=== PATIENT | male | born 1960 | race African-American/Black ===

== ENCOUNTER 2018-06-02 04:05 | Emergency (ER) | payer MEDICARE, MEDICAID ==
[~2018-06-02] VITALS: Ht 165.1 cm; Wt 95.5 kg
[~2018-06-02 04:05] MED LIST: FLEXERIL 1010 MG/TAB PO; NORCO 325 MG-51 TAB PO
[2018-06-02 04:30] LABS: BASO % 0.3 % (0.0-2.0); EOS # 0.1 (0.0-0.7); EOS % 1.5 % (0-4.0); GRAN # 5.7 (1.4-6.5); GRAN % 60.8 % (42.2-75.2); HEMATOCRIT 40.2 % (42.0-52.0); HEMOGLOBIN 13.7 g/dl (13.5-18.0); LYMPH # 2.4 (1.2-3.4); LYMPH % 25.5 % (20.0-51.0); MEAN CELL VOLUME 83 fl (80.0-100.0); MEAN CORPUSCULAR HEMOGLOBIN 28 pg (27.0-31.0); MEAN CORPUSCULAR HGB CONC 34 g/dl (33.0-37.0); MEAN PLATELET VOLUME 10.9 fl (7.4-10.4); MONO % 11.1 % (1.7-9.3); PLATELET COUNT 198 K/mm3 (130-400); RED BLOOD COUNT 4.82 M/mm3 (4.20-5.60); REDCELL DISTRIBUTION WIDTH-CV 14.4 % (11.5-14.5)
[2018-06-02] MEDS ORDERED: ASPIRIN 81M81 MG/TA2 PO (04:34)
[2018-06-02 04:39] LABS: INR 0.9 (0.8-3.0); PARTIAL THROMBOPLASTIN TIME 31.1 SECONDS (26.0-37.0); PROTHROMBIN TIME 10.5 SECONDS (9.7-12.8)
[2018-06-02 04:43] LABS: ALBUMIN 3.8 gm/dL (3.5-5.0); BILIRUBIN,TOTAL 0.9 mg/dL (0.0-1.0); C-REACTIVE PROTEIN 1.3 mg/dL (0.0-0.9); CALCIUM 8.4 mg/dL (8.4-10.2); CREATININE, serum 1.16 mg/dL (0.66-1.25); POTASSIUM 3.9 mmol/L (3.4-5.0); TOTAL PROTEIN 7.2 gm/dL (6.4-8.2)
[2018-06-02 04:51] LABS: TROPONIN-I 0.018 ng/mL (0.000-0.034)
[2018-06-02 07:25] VITALS: BP 166/95; PULSE 114
== END 2018-06-02 07:28 | disposition short-term general hospital (02) ==
LOC: COL.ER 04:05
PROVIDERS: Emergency Medicine
DX: I20.0 Unstable angina (principal); E11.9 Type 2 diabetes mellitus without complications; I10 Essential (primary) hypertension; F17.210 Nicotine dependence, cigarettes, uncomplicated; Z91.14 Patient's other noncompliance with medication regimen; Z79.82 Long term (current) use of aspirin
CPT/HCPCS: C9113; J0461; J1327; J1650; J1815; J2060; J2270; J7030; J7060

== ENCOUNTER 2018-06-12 00:05 | Emergency (ER) | payer MEDICARE, MEDICAID ==
[~2018-06-12] VITALS: Ht 165.1 cm; Wt 96.4 kg
[~2018-06-12 00:05] MED LIST changes: +ASPIRIN 81M81 MG/TA2 PO
[2018-06-12 00:19] LABS: BASO % 0.4 % (0.0-2.0); EOS # 0.2 (0.0-0.7); EOS % 1.7 % (0-4.0); GRAN # 5.6 (1.4-6.5); GRAN % 52.4 % (42.2-75.2); HEMATOCRIT 39.5 % (42.0-52.0); HEMOGLOBIN 13.1 g/dl (13.5-18.0); LYMPH # 3.7 (1.2-3.4); LYMPH % 34.1 % (20.0-51.0); MEAN CELL VOLUME 85 fl (80.0-100.0); MEAN CORPUSCULAR HEMOGLOBIN 28 pg (27.0-31.0); MEAN CORPUSCULAR HGB CONC 33 g/dl (33.0-37.0); MONO # 1.2 (0.1-0.6); MONO % 10.9 % (1.7-9.3); PLATELET COUNT 213 K/mm3 (130-400); RED BLOOD COUNT 4.67 M/mm3 (4.20-5.60); REDCELL DISTRIBUTION WIDTH-CV 14.6 % (11.5-14.5)
[2018-06-12 00:25] LABS: PROTHROMBIN TIME 11.7 SECONDS (9.7-12.8)
[2018-06-12 00:29] LABS: ALBUMIN 3.6 gm/dL (3.5-5.0); BILIRUBIN,TOTAL 0.6 mg/dL (0.0-1.0); CALCIUM 8.7 mg/dL (8.4-10.2); CREATININE, serum 0.98 mg/dL (0.66-1.25); POTASSIUM 4.1 mmol/L (3.4-5.0); TOTAL PROTEIN 7.4 gm/dL (6.4-8.2)
[2018-06-12 00:42] LABS: TROPONIN-I 0.049 ng/mL (0.000-0.034)
[2018-06-12 01:26] VITALS: BP 122/77; PULSE 81
== END 2018-06-12 01:01 | disposition short-term general hospital (02) ==
LOC: COL.ER 00:05
PROVIDERS: Emergency Medicine
DX: I21.3 ST elevation (STEMI) myocardial infarction of unspecified site (principal); I25.10 Atherosclerotic heart disease of native coronary artery without angina pectoris; I10 Essential (primary) hypertension; E78.5 Hyperlipidemia, unspecified; F17.210 Nicotine dependence, cigarettes, uncomplicated; Z95.5 Presence of coronary angioplasty implant and graft
CPT/HCPCS: J1644; J2270; J3101

== ENCOUNTER 2018-06-28 10:43 | Emergency (ER) | payer MEDICARE, MEDICAID ==
[~2018-06-28] VITALS: Ht 165.1 cm; Wt 89.1 kg
[2018-06-28 10:47] VITALS: TEMP 97.8
[2018-06-28 11:04] LABS: BASO # 0.1 (0.0-0.2); BASO % 0.6 % (0.0-2.0); EOS # 0.4 (0.0-0.7); EOS % 3.9 % (0-4.0); GRAN # 6.6 (1.4-6.5); GRAN % 60.5 % (42.2-75.2); HEMATOCRIT 43.4 % (42.0-52.0); HEMOGLOBIN 14.7 g/dl (13.5-18.0); LYMPH # 2.8 (1.2-3.4); LYMPH % 25.1 % (20.0-51.0); MEAN CELL VOLUME 84 fl (80.0-100.0); MEAN CORPUSCULAR HEMOGLOBIN 29 pg (27.0-31.0); MEAN CORPUSCULAR HGB CONC 34 g/dl (33.0-37.0); MEAN PLATELET VOLUME 10.1 fl (7.4-10.4); MONO % 9.4 % (1.7-9.3); PLATELET COUNT 240 K/mm3 (130-400); RED BLOOD COUNT 5.16 M/mm3 (4.20-5.60); REDCELL DISTRIBUTION WIDTH-CV 13.8 % (11.5-14.5)
[2018-06-28 11:15] LABS: ALBUMIN 3.9 gm/dL (3.5-5.0); CALCIUM 9.2 mg/dL (8.4-10.2); CREATININE, serum 1.17 mg/dL (0.66-1.25); POTASSIUM 4.9 mmol/L (3.4-5.0); TOTAL PROTEIN 7.6 gm/dL (6.4-8.2)
[2018-06-28 11:17] LABS: INR 1.1 (0.8-3.0); PROTHROMBIN TIME 12.3 SECONDS (9.7-12.8)
[2018-06-28] MEDS ORDERED: LIPITOR 80MG80 MG PO (11:34)
[2018-06-28] MEDS ORDERED: GLUCOTROL 5M5 MG/TAB PO (11:34)
[2018-06-28] MEDS ORDERED: PEPCID 20MG TAB20 MG PO (11:35)
[2018-06-28] MEDS ORDERED: KEPPRA250 MG PO (11:35)
[2018-06-28] MEDS ORDERED: TOPROL XL 50MG50 MG PO (11:35)
[2018-06-28] MEDS ORDERED: ULTRAM 50MG TAB50 MG PO (11:36)
[2018-06-28] MEDS ORDERED: NITROSTAT0.4 MG/TAB PO (11:37)
[2018-06-28] MEDS ORDERED: CIPRO 500MG TA500 MG PO (11:37)
[2018-06-28] MEDS ORDERED: ASPIRIN 81M81 MG/TA2 PO (11:38)
[2018-06-28] MEDS ORDERED: TYLENOL 325MG325 MG PO (11:38)
[2018-06-28] MEDS ORDERED: LANTUS SOLOS100 U/ML SQ (11:39)
[2018-06-28] MEDS ORDERED: PHENERGAN 25 TA25 MG PO (14:32)
[2018-06-28 18:14] VITALS: BP 118/83; PULSE 90
== END 2018-06-28 18:15 | disposition home or self-care (01) ==
LOC: COL.ER 10:44
PROVIDERS: Emergency Medicine
DX: R51 Headache (principal); M79.605 Pain in left leg; R07.9 Chest pain, unspecified; I10 Essential (primary) hypertension; E11.9 Type 2 diabetes mellitus without complications; I25.2 Old myocardial infarction; Z86.73 Personal history of transient ischemic attack (TIA), and cerebral infarction without residual deficits; Z95.5 Presence of coronary angioplasty implant and graft; Z79.82 Long term (current) use of aspirin; Z79.4 Long term (current) use of insulin
CPT/HCPCS: J2405

== ENCOUNTER → 2018-10-13 | Outpatient (CLI) | payer MEDICARE, MEDICAID ==
[~2018-10-13] MED LIST changes: +CIPRO 500MG TA500 MG PO; +GLUCOTROL 5M5 MG/TAB PO; +KEPPRA250 MG PO; +LANTUS SOLOS100 U/ML SQ; +LIPITOR 80MG80 MG PO; +NITROSTAT0.4 MG/TAB PO; +PEPCID 20MG TAB20 MG PO; +PHENERGAN 25 TA25 MG PO; +TOPROL XL 50MG50 MG PO; +TYLENOL 325MG325 MG PO; +ULTRAM 50MG TAB50 MG PO
== END ==
LOC: COL.RAD 10:26
DX: I62.9 Nontraumatic intracranial hemorrhage, unspecified (principal); I61.8 Other nontraumatic intracerebral hemorrhage; D49.6 Neoplasm of unspecified behavior of brain; J32.0 Chronic maxillary sinusitis; G93.89 Other specified disorders of brain
CPT/HCPCS: A9585

== ENCOUNTER 2019-03-01 19:47 | Observation (INO) | payer MEDICARE, MEDICAID ==
[~2019-03-01] VITALS: Ht 165.1 cm; Wt 89.4 kg
[2019-03-01 20:05] LABS: BASO % 0.3 % (0.0-2.0); EOS # 0.2 (0.0-0.7); EOS % 1.7 % (0-4.0); GRAN # 6.2 (1.4-6.5); GRAN % 61.2 % (42.2-75.2); HEMATOCRIT 42.3 % (42.0-52.0); LYMPH # 2.8 (1.2-3.4); LYMPH % 28.2 % (20.0-51.0); MEAN CELL VOLUME 84 fl (80.0-100.0); MEAN CORPUSCULAR HEMOGLOBIN 28 pg (27.0-31.0); MEAN CORPUSCULAR HGB CONC 33 g/dl (33.0-37.0); MEAN PLATELET VOLUME 10.8 fl (7.4-10.4); MONO # 0.8 (0.1-0.6); PLATELET COUNT 234 K/mm3 (130-400); RED BLOOD COUNT 5.02 M/mm3 (4.20-5.60)
[2019-03-01 20:13] LABS: ALANINE AMINOTRANSFERASE 11 U/L (21-72); ALBUMIN 4.1 gm/dL (3.5-5.0); ALKALINE PHOSPHATASE 97 U/L (50-136); ANION GAP 13 mmol/L (7-16); AST,SGOT 25 U/L (15-37); BILIRUBIN,TOTAL 0.7 mg/dL (0.0-1.0); BLOOD UREA NITROGEN 22 mg/dL (9-20); CALCIUM 9.6 mg/dL (8.4-10.2); CARBON DIOXIDE 24 mmol/L (22-30); CHLORIDE 101 mmol/L (98-107); CREATININE, serum 1.47 (0.66-1.25); GLUCOSE 333 mg/dL (74-106); LIPASE 143 U/L (23-300); POTASSIUM 4.3 mmol/L (3.4-5.0); PROTHROMBIN TIME 11.6 SECONDS (9.7-12.8); SODIUM 138 mmol/L (137-145); TOTAL PROTEIN 7.8 gm/dL (6.4-8.2)
[2019-03-01 20:15] LABS: PARTIAL THROMBOPLASTIN TIME 32.4 SECONDS (26.0-37.0)
[2019-03-01 20:26] LABS: TROPONIN-I < 0.012 ng/mL (0.000-0.035)
--- NOTE | 2019-03-01 21:30 | NUR ---
Report received from Jeremie in ED.
--- NOTE | 2019-03-01 22:00 | NUR ---
Pt arrived to Medical floor 351 via stretcher with family members at bedside. Pt resting in bed at the time of arrival of this nurse into pt room. Jeans and socks are on in addition to hospital gown. Pt denies any pain at this time. Is laughing and joking with family members.
[2019-03-01 22:01] VITALS: BP 92/78; PULSE 94; TEMP 98.3
[2019-03-02] VITALS (9 sets, daily range): BP systolic 121–153; BP diastolic 70–92; PULSE 73–103; TEMP 97.7–98.4
--- NOTE | 2019-03-02 07:10 | NUR ---
Patient is awake and sitting up in bed watching TV. Denies having any pain. No needs verbalized. Call light and personal items are within reach.
--- NOTE | 2019-03-02 07:30 | NUR ---
Report provided to Marifer SOUSA.
[2019-03-02 09:09] LABS: BASO % 0.4 % (0.0-2.0); EOS # 0.2 (0.0-0.7); EOS % 2.4 % (0-4.0); GRAN # 3.9 (1.4-6.5); GRAN % 48.4 % (42.2-75.2); HEMATOCRIT 40.7 % (42.0-52.0); HEMOGLOBIN 13.4 g/dl (13.5-18.0); LYMPH # 3.3 (1.2-3.4); MEAN CELL VOLUME 85 fl (80.0-100.0); MEAN CORPUSCULAR HEMOGLOBIN 28 pg (27.0-31.0); MEAN CORPUSCULAR HGB CONC 33 g/dl (33.0-37.0); MEAN PLATELET VOLUME 10.7 fl (7.4-10.4); MONO # 0.6 (0.1-0.6); MONO % 7.3 % (1.7-9.3); PLATELET COUNT 204 K/mm3 (130-400); RED BLOOD COUNT 4.78 M/mm3 (4.20-5.60); REDCELL DISTRIBUTION WIDTH-CV 14.1 % (11.5-14.5)
[2019-03-02 09:18] LABS: CHOLESTEROL RISK RATIO 7.4
[2019-03-02 09:21] LABS: CREATININE, serum 1.09 (0.66-1.25)
[2019-03-02 09:39] LABS: TROPONIN-I 0.551 ng/mL (0.000-0.035)
--- NOTE | 2019-03-02 12:53 | NUR ---
SW attended clincal rounds to discuss discharge planning. Patient lives independently at home by himself. He reports his daughter has asked him to move in with her but patient is not ready to do that. Patient reports his PCP is Dr Castro and he obtains prescriptions from either [facility] or a company that mails medications to his apartment. Patient reports he has a CPAP and O2 at home but he does not use either. Patient does not use any home health services but has been to outpatient PT in the past. Patient has had issues being compliant with medications because he is unable to come to [place] to berry picker medications. Doctor reported it is important that patient take all prescribed medications. SW will follow as needed but no anticipated needs at this time.
--- NOTE | 2019-03-02 20:52 | NUR ---
Patient rsting in bed, assessment completed, denies pain. On heparin gtt infusing at 8ml/hr. Evening medications administered. No further needs at this time.
[2019-03-03 00:07] VITALS: BP 122/69; PULSE 80; TEMP 98.2
[2019-03-03 03:55] VITALS: BP 132/73; PULSE 75; TEMP 98.5
--- NOTE | 2019-03-03 05:14 | NUR ---
Pt slept most of the night, VSS, afebrile, heparin gtt at 8 mls/hr, recheck at 0500 this am.
[2019-03-03 06:59] LABS: BASO % 0.3 % (0.0-2.0); EOS # 0.2 (0.0-0.7); EOS % 2.7 % (0-4.0); GRAN # 3.5 (1.4-6.5); GRAN % 47.1 % (42.2-75.2); HEMATOCRIT 38.9 % (42.0-52.0); HEMOGLOBIN 12.6 g/dl (13.5-18.0); LYMPH # 3.1 (1.2-3.4); LYMPH % 41.3 % (20.0-51.0); MEAN CELL VOLUME 87 fl (80.0-100.0); MEAN CORPUSCULAR HEMOGLOBIN 28 pg (27.0-31.0); MEAN CORPUSCULAR HGB CONC 32 g/dl (33.0-37.0); MONO # 0.6 (0.1-0.6); MONO % 8.3 % (1.7-9.3); PLATELET COUNT 218 K/mm3 (130-400); RED BLOOD COUNT 4.49 M/mm3 (4.20-5.60); REDCELL DISTRIBUTION WIDTH-CV 14.3 % (11.5-14.5)
--- NOTE | 2019-03-03 07:00 | NUR ---
Report received from LARS Dang. PT in bed resting, heparin gtt infusing at 8 ml/hr. Denies needs, will continue to monitor.
--- NOTE | 2019-03-03 07:14 | NUR ---
report given to rené benites.
[2019-03-03 07:15] LABS: ALBUMIN 3.3 gm/dL (3.5-5.0); BILIRUBIN,TOTAL 0.6 mg/dL (0.0-1.0); CALCIUM 8.8 mg/dL (8.4-10.2); POTASSIUM 3.9 mmol/L (3.4-5.0); TOTAL PROTEIN 6.6 gm/dL (6.4-8.2)
[2019-03-03 07:17] VITALS: BP 139/80; PULSE 82; TEMP 98.4
[2019-03-03 07:24] LABS: TROPONIN-I 0.83 ng/mL (0.000-0.035)
--- NOTE | 2019-03-03 10:00 | NUR ---
Assessment charted. Pt resting in bed, feelign well. Discussed home social situations with financial issues. Denies pain. Heparin gtt infusing to LF. Will continue to monitor.
--- NOTE | 2019-03-03 10:27 | NUR ---
Visited and listened to the patient. I provided spiritual care and prayed with him.
[2019-03-03] MEDS ORDERED: NICODERM C7 MG/PATCH TD ×2 (10:52→15:28)
[2019-03-03] MEDS ORDERED: NITROSTAT0.4 MG/TAB SL (10:53)
[2019-03-03] MEDS ORDERED: GLUCOPHAGE500 MG/TAB PO ×2 (10:54→15:28)
[2019-03-03] MEDS ORDERED: LIPITOR 40MG TA40 MG PO (10:54)
[2019-03-03] MEDS ORDERED: JANUVIA 100MG100 MG PO ×2 (10:54→15:28)
[2019-03-03 12:48] VITALS: BP 122/77; PULSE 97; TEMP 97.6
--- NOTE | 2019-03-03 13:58 | NUR ---
Critical lab results reported to Dr. Freeman
[2019-03-03] MEDS ORDERED: ASPIRIN E.C. 8181 MG PO ×2 (14:08→15:28)
[2019-03-03] MEDS ORDERED: PLAVIX 75MG TAB75 MG PO ×2 (14:08→15:28)
[2019-03-03] MEDS ORDERED: NITROSTAT0.3 MG SL (15:28)
[2019-03-03] MEDS ORDERED: LIPITOR 10MG10 MG PO (15:28)
--- NOTE | 2019-03-03 16:09 | NUR ---
Met with patient about his current medication concerns. Patient reports that he is on a fixed income and can not afford his medications. Patient indicated that he uses [employer] for two of the medications and pays up to 3 dollars for the medications. Patient reports that it is sometimes hard to afford the three dollars. Patient shares that he is in a financial hardship and was trying to explain this to the nursing staff and doctors. Patient indicated that he resides alone in [facility] and his sister helps with the transportation at time. Patient denies needing any immediate assistance but a consult was placed because patient is n ot medication compliant. Patient reports that pills come in the mail but does not have a vehicle to get around for a local pharmacy. SW placed consult to [facility] office to see if they have any additonal resources.
--- NOTE | 2019-03-03 16:24 | NUR ---
Discharge teaching completed at this time. Sent scripts to [facility] per patient as home pharmacy is closed today. INT d/c'd, tip intact. Reviewed discharge packet, answered all questions. Pt leaving with all belongings, will be escorted out by medical staff, family to drive home, criteria met.
--- NOTE | 2019-03-03 18:13 | NUR ---
Pt escorted out by ANIMAL CARE GIVER, left with all belongings, daughter to drive home, criteria met.
== END 2019-03-03 18:13 | disposition home or self-care (01) ==
LOC: COL.ER 19:47 → MEDICAL 21:18
PROVIDERS: Emergency Medicine; Nurse Practitioner Family; Physician Assistant; ADMIT Hospitalist
DX: I21.4 Non-ST elevation (NSTEMI) myocardial infarction (principal); N17.9 Acute kidney failure, unspecified; I10 Essential (primary) hypertension; E78.5 Hyperlipidemia, unspecified; F17.210 Nicotine dependence, cigarettes, uncomplicated; E11.319 Type 2 diabetes mellitus with unspecified diabetic retinopathy without macular edema; G47.33 Obstructive sleep apnea (adult) (pediatric); J44.9 Chronic obstructive pulmonary disease, unspecified; I73.9 Peripheral vascular disease, unspecified; Z79.82 Long term (current) use of aspirin; I27.20 Pulmonary hypertension, unspecified; Z82.3 Family history of stroke; Z82.49 Family history of ischemic heart disease and other diseases of the circulatory system; Z79.02 Long term (current) use of antithrombotics/antiplatelets; Z79.4 Long term (current) use of insulin; Z82.61 Family history of arthritis; Z82.5 Family history of asthma and other chronic lower respiratory diseases; I34.0 Nonrheumatic mitral (valve) insufficiency
CPT/HCPCS: A9500; G0378; J1644; J1815; J2270; J2405; J2785; J7030

== ENCOUNTER 2020-05-21 07:32 | Day surgery (SDC) | payer MEDICARE, MEDICAID ==
[2020-05-21] VITALS (249 sets, daily range): BP systolic 104–155; BP diastolic 51–85; PULSE 76–97; TEMP 98–98.4; O2SAT 96–100
[~2020-05-21] VITALS: Ht 167.6 cm; Wt 90.8 kg
[~2020-05-21 07:32] MED LIST changes: +ASPIRIN E.C. 8181 MG PO; +GLUCOPHAGE500 MG/TAB PO; +JANUVIA 100MG100 MG PO; +LIPITOR 10MG10 MG PO; +LIPITOR 40MG TA40 MG PO; +NICODERM C7 MG/PATCH TD; +NITROSTAT0.3 MG SL; +NITROSTAT0.4 MG/TAB SL; +PLAVIX 75MG TAB75 MG PO
[2020-05-21] MEDS ORDERED: ASPIRIN E.C. 8181 MG PO (08:28)
[2020-05-21] MEDS ORDERED: LIPITOR20 MG PO (08:29)
[2020-05-21] MEDS ORDERED: PLAVIX 75MG TAB75 MG PO (08:29)
[2020-05-21] MEDS ORDERED: LUNESTA2 MG PO (08:30)
[2020-05-21] MEDS ORDERED: GLUCOTROL 5M5 MG/TAB PO (08:31)
[2020-05-21] MEDS ORDERED: NEURONTIN300 MG/CAP PO (08:31)
[2020-05-21] MEDS ORDERED: IMDUR 60MG60 MG/TAB PO (08:32)
[2020-05-21] MEDS ORDERED: LOPRESSOR 550 MG/TAB PO (08:32)
[2020-05-21 09:03] LABS: HEMATOCRIT 45.7 % (42.0-52.0); HEMOGLOBIN 15.1 g/dl (13.5-18.0); MEAN CELL VOLUME 84 fl (80.0-100.0); MEAN CORPUSCULAR HEMOGLOBIN 28 pg (27.0-31.0); MEAN CORPUSCULAR HGB CONC 33 g/dl (33.0-37.0); MEAN PLATELET VOLUME 10.5 fl (7.4-10.4); PLATELET COUNT 188 K/mm3 (130-400); RED BLOOD COUNT 5.43 M/mm3 (4.20-5.60); REDCELL DISTRIBUTION WIDTH-CV 14.4 % (11.5-14.5)
[2020-05-21 09:09] LABS: PROTHROMBIN TIME 10.8 SECONDS (9.7-12.8)
[2020-05-21 09:11] LABS: PARTIAL THROMBOPLASTIN TIME 33.9 SECONDS (26.0-37.0)
[2020-05-21 09:13] LABS: CALCIUM 9.2 mg/dL (8.4-10.2); CREATININE, serum 0.97 (0.66-1.25); POTASSIUM 4.4 mmol/L (3.4-5.0)
--- NOTE | 2020-05-21 10:42 | NUR ---
SEE MERGE DOCUMENTATION FOR MEDICATION ADMINISTRATION TIMES AND INTRA/POST PROCEDURE SEDATION ASSESSMENTS. RIGHT HAND BARBEAU TEST POSITIVE.
--- NOTE | 2020-05-21 17:46 | NUR ---
Patient transferred to room IMCU 16 and I am assuming patient cares at this point, he is alert/oriented, vital signs stable, will re-attempt to deflate right radial compression band
--- NOTE | 2020-05-21 18:20 | NUR ---
5cc of air was removed from the band at 1800, no signs of bleeding, will continue to deflate as tolerated
--- NOTE | 2020-05-21 18:43 | NUR ---
Right TR band completely deflate, no bleeding noted, will continue to monitor
--- NOTE | 2020-05-21 19:00 | NUR ---
RECEIVED REPORT FROM LARS BASILIO. PT ASSISTED TO TOILET BY STANDBY ASSIST. SLOW STEADY GAIT NOTED. CALL LIGHT WITHIN REACH. VSS. PT DENIES ANY DIZZINESS OT CP UPON STANDING. SEE GTT FLOWSHEET.
[2020-05-22] VITALS (196 sets, daily range): BP systolic 116–143; BP diastolic 74–79; PULSE 75–84; TEMP 98.2–98.6; O2SAT 95–100
[2020-05-22 05:49] LABS: BASO % 0.3 % (0.0-2.0); EOS # 0.2 (0.0-0.7); EOS % 2.3 % (0-4.0); GRAN # 4.3 (1.4-6.5); GRAN % 57.1 % (42.2-75.2); HEMATOCRIT 44.4 % (42.0-52.0); HEMOGLOBIN 14.4 g/dl (13.5-18.0); LYMPH # 2.3 (1.2-3.4); MEAN CELL VOLUME 84 fl (80.0-100.0); MEAN CORPUSCULAR HEMOGLOBIN 27 pg (27.0-31.0); MEAN CORPUSCULAR HGB CONC 32 g/dl (33.0-37.0); MEAN PLATELET VOLUME 10.2 fl (7.4-10.4); MONO # 0.6 (0.1-0.6); MONO % 8.5 % (1.7-9.3); PLATELET COUNT 196 K/mm3 (130-400); RED BLOOD COUNT 5.28 M/mm3 (4.20-5.60); REDCELL DISTRIBUTION WIDTH-CV 14.3 % (11.5-14.5)
[2020-05-22 05:59] LABS: CALCIUM 9.2 mg/dL (8.4-10.2); CREATININE, serum 0.95 (0.66-1.25); POTASSIUM 4.3 mmol/L (3.4-5.0)
--- NOTE | 2020-05-22 09:53 | NUR ---
NORI met with the patient to discuss discharge plan. The patient lives alone in [place]. He has a daughter, Irish Marrero, that lives in [place], but states that he does not trust her and that they do not have a great relationship. He reports independence with ADLs and has an electric scooter and CPAP from [facility]. The patient states that he has been working with [facility] and the dialysis social worker at this PCP's office to get a different electric scooter. He states that he has not heard from either of them in awhile. NORI attempted to contact [place], dialysis social worker with Dr. Castro. SW left her a voicemail. SW also encouraged the patient to keep in contact with [place] and [facility]. The patient's PCP is Dr. Isaias Castro and he receives his medications at [facility] in [place]. The patient does not have advanced directives and he was not interested in completing a DPOA-HC at this time. The patient states that he has five children, but does not have the best relationships with them. He states that his emergency contact would be his mother, Leigh Chase (ph#[phone]). Leigh lives in [place], [place]. The patient informed NORI that he ordered food from online and that it could be delivered today, via [employer], and that he is concerned it could go bad in the heat or that his neighbors will steal it. The patient states that he has no one that would be able to pick it up for him and does not have the tracking number to contact [employer] or to know where the package is. He states that the food is from [employer]. NORI contacted [employer]. The industrial relations representative reports that they are not able to delay the package. She confirmed that the package is expected to be arriving by the end of the day and that the food will come in an insulated card board box. SW updated the patient on this. The patient reports that this makes him feel a lot better and that he should be home by the end of today. The patient is to tentatively discharge today. He states that he will need transport set up, via Medicaid transportation. SW to assist with this.
[2020-05-22] MEDS ORDERED: LIPITOR 80MG80 MG PO (10:29)
[2020-05-22] MEDS ORDERED: ASPIRIN E.C. 8181 MG PO (10:30)
[2020-05-22] MEDS ORDERED: NICODERM C21 MG/PATC TD (10:32)
--- NOTE | 2020-05-22 10:58 | NUR ---
The patient is to discharge back home today, 05/22. NORI contacted Medicaid [employer] and secured him a ride home. Trip ID#[id number]. NORI informed the patient's RN. No additional needs at this time.
== END 2020-05-22 11:45 | disposition home or self-care (01) ==
LOC: COL.CAR 07:32 → IMCU 16:08 → COL.CAR 05-22 11:45
PROVIDERS: Internal Medicine Cardiovascular Disease
DX: I25.110 Atherosclerotic heart disease of native coronary artery with unstable angina pectoris (principal); I25.2 Old myocardial infarction; I10 Essential (primary) hypertension; E78.5 Hyperlipidemia, unspecified; F17.210 Nicotine dependence, cigarettes, uncomplicated; Z95.820 Peripheral vascular angioplasty status with implants and grafts; Z95.5 Presence of coronary angioplasty implant and graft; Z88.8 Allergy status to other drugs, medicaments and biological substances; Z79.02 Long term (current) use of antithrombotics/antiplatelets; Z79.899 Other long term (current) drug therapy; Z79.82 Long term (current) use of aspirin
CPT/HCPCS: OP; C1725; C1769; C1874; C1887; C9600; J1644; J2250; J3010

== ENCOUNTER 2020-10-13 10:48 | Emergency (ER) | payer MEDICARE, MEDICAID ==
[~2020-10-13] VITALS: Ht 167.6 cm; Wt 95.0 kg
[~2020-10-13 10:48] MED LIST changes: +IMDUR 60MG60 MG/TAB PO; +LIPITOR20 MG PO; +LOPRESSOR 550 MG/TAB PO; +LUNESTA2 MG PO; +NEURONTIN300 MG/CAP PO; +NICODERM C21 MG/PATC TD
[2020-10-13 12:36] LABS: BASO % 0.3 % (0.0-2.0); EOS # 0.2 (0.0-0.7); EOS % 1.4 % (0-4.0); GRAN # 7.7 (1.4-6.5); GRAN % 64.6 % (42.2-75.2); HEMATOCRIT 43.7 % (42.0-52.0); HEMOGLOBIN 14.4 g/dl (13.5-18.0); LYMPH # 3.1 (1.2-3.4); LYMPH % 25.6 % (20.0-51.0); MEAN CELL VOLUME 84 fl (80.0-100.0); MEAN CORPUSCULAR HEMOGLOBIN 28 pg (27.0-31.0); MEAN CORPUSCULAR HGB CONC 33 g/dl (33.0-37.0); MEAN PLATELET VOLUME 10.4 fl (7.4-10.4); MONO # 0.9 (0.1-0.6); MONO % 7.5 % (1.7-9.3); PLATELET COUNT 208 K/mm3 (130-400); RED BLOOD COUNT 5.19 M/mm3 (4.20-5.60); REDCELL DISTRIBUTION WIDTH-CV 14.6 % (11.5-14.5)
[2020-10-13 12:55] LABS: ANION GAP 7 mmol/L (7-16); BLOOD UREA NITROGEN 10 mg/dL (9-20); CALCIUM 9.1 mg/dL (8.4-10.2); CARBON DIOXIDE 28 mmol/L (22-30); CHLORIDE 102 mmol/L (98-107); CREATININE, serum 1.08 (0.66-1.25); GLUCOSE 311 mg/dL (74-106); MAGNESIUM 1.8 mg/dL (1.6-2.3); SODIUM 137 mmol/L (137-145)
[2020-10-13 13:12] LABS: TROPONIN-I < 0.012 ng/mL (0.000-0.035)
[2020-10-13] MEDS ORDERED: TYLENOL 325MG325 MG PO (13:32)
[2020-10-13] MEDS ORDERED: CLEOCIN HCL300 MG PO (13:32)
[2020-10-13] MEDS ORDERED: FREESTYLE PREC1 EAC5 MC (13:32)
[2020-10-13 13:41] VITALS: BP 145/74; PULSE 76; TEMP 98.2
== END 2020-10-13 13:43 | disposition home or self-care (01) ==
LOC: COL.ER 10:48
PROVIDERS: Emergency Medicine
DX: Z95.5 Presence of coronary angioplasty implant and graft (principal); I25.2 Old myocardial infarction; E11.9 Type 2 diabetes mellitus without complications; I10 Essential (primary) hypertension; Z86.73 Personal history of transient ischemic attack (TIA), and cerebral infarction without residual deficits; Z79.82 Long term (current) use of aspirin; Z79.02 Long term (current) use of antithrombotics/antiplatelets; Z79.84 Long term (current) use of oral hypoglycemic drugs

== ENCOUNTER → 2020-11-03 | Outpatient (CLI) | payer MEDICARE, MEDICAID ==
[~2020-11-03] MED LIST changes: +CLEOCIN HCL300 MG PO; +FREESTYLE PREC1 EAC5 MC
== END ==
LOC: DIA.ED
DX: E11.40 Type 2 diabetes mellitus with diabetic neuropathy, unspecified (principal); Z79.4 Long term (current) use of insulin; E66.8 Other obesity; E78.5 Hyperlipidemia, unspecified; I10 Essential (primary) hypertension
CPT/HCPCS: G0108

== ENCOUNTER 2021-06-28 03:18 | Emergency (ER) | payer MEDICARE, MEDICAID ==
[~2021-06-28] VITALS: Ht 165.1 cm; Wt 93.6 kg
[2021-06-28 04:17] LABS: BASO % 0.3 % (0.0-2.0); EOS # 0.2 (0.0-0.7); EOS % 1.5 % (0-4.0); GRAN # 7.2 (1.4-6.5); GRAN % 68.8 % (42.2-75.2); HEMATOCRIT 40.1 % (42.0-52.0); HEMOGLOBIN 13.3 g/dl (13.5-18.0); LYMPH % 19.6 % (20.0-51.0); MEAN CELL VOLUME 85 fl (80.0-100.0); MEAN CORPUSCULAR HEMOGLOBIN 28 pg (27.0-31.0); MEAN CORPUSCULAR HGB CONC 33 g/dl (33.0-37.0); MEAN PLATELET VOLUME 10.5 fl (7.4-10.4); MONO % 9.4 % (1.7-9.3); PLATELET COUNT 189 K/mm3 (130-400); RED BLOOD COUNT 4.73 M/mm3 (4.20-5.60); REDCELL DISTRIBUTION WIDTH-CV 13.5 % (11.5-14.5)
[2021-06-28 04:31] LABS: ANION GAP 7 mmol/L (7-16); BLOOD UREA NITROGEN 15 mg/dL (9-20); CALCIUM 8.4 mg/dL (8.4-10.2); CARBON DIOXIDE 28 mmol/L (22-30); CHLORIDE 103 mmol/L (98-107); CREATININE, serum 1.04 (0.66-1.25); GLUCOSE 249 mg/dL (74-106); SODIUM 138 mmol/L (137-145)
[2021-06-28 04:43] LABS: TROPONIN-I < 0.012 ng/mL (0.000-0.035)
[2021-06-28] MEDS ORDERED: PEN-VEE K500 MG PO (05:09)
[2021-06-28 06:19] VITALS: BP 138/73; PULSE 82; TEMP 98.7
== END 2021-06-28 06:21 | disposition home or self-care (01) ==
LOC: COL.ER 03:18
PROVIDERS: Student in an Organized Health Care Education/Training Program
DX: K08.89 Other specified disorders of teeth and supporting structures (principal); I50.9 Heart failure, unspecified; I25.2 Old myocardial infarction; F17.210 Nicotine dependence, cigarettes, uncomplicated; Z79.82 Long term (current) use of aspirin; Z79.02 Long term (current) use of antithrombotics/antiplatelets
CPT/HCPCS: J3010

== ENCOUNTER 2022-01-22 08:04 | Day surgery (SDC) | payer MEDICARE, MEDICAID ==
[~2022-01-22] VITALS: Ht 165.1 cm; Wt 92.8 kg
[2022-01-22] VITALS (17 sets, daily range): BP systolic 99–141; BP diastolic 50–91; PULSE 74–91; TEMP 97.7–98.2
[~2022-01-22 08:04] MED LIST changes: -IMDUR 60MG60 MG/TAB PO; +ISOSORBIDE MON120 MG PO; +PEN-VEE K500 MG PO
[2022-01-22 08:35] LABS: HEMATOCRIT 43.7 % (42.0-52.0); HEMOGLOBIN 14.7 g/dl (13.5-18.0); MEAN CELL VOLUME 85 fl (80.0-100.0); MEAN CORPUSCULAR HEMOGLOBIN 29 pg (27-31); MEAN CORPUSCULAR HGB CONC 34 g/dl (33.0-37.0); MEAN PLATELET VOLUME 10.6 fl (7.4-10.4); PLATELET COUNT 211 K/mm3 (130-400); RED BLOOD COUNT 5.16 M/mm3 (4.20-5.60); REDCELL DISTRIBUTION WIDTH-CV 14.7 % (11.5-14.5)
[2022-01-22 08:42] LABS: PROTHROMBIN TIME 11.2 SECONDS (9.7-12.8)
[2022-01-22 08:44] LABS: PARTIAL THROMBOPLASTIN TIME 31.6 SECONDS (26.0-37.0)
[2022-01-22 08:50] LABS: CALCIUM 9.3 mg/dL (8.4-10.2); CREATININE, serum 1.26 mg/dL (0.72-1.25)
[2022-01-22] MEDS ORDERED: ASPIRIN 81M81 MG/TA2 PO (09:48)
[2022-01-22] MEDS ORDERED: LIPITOR 40MG TA40 MG PO (09:49)
[2022-01-22] MEDS ORDERED: TRESIBA100 UNIT/1 SQ (09:50)
[2022-01-22] MEDS ORDERED: BASAGLAR K100 UNIT/1 SQ (09:51)
[2022-01-22] MEDS ORDERED: COZAAR 50MG50 MG/TAB PO (09:53)
[2022-01-22] MEDS ORDERED: NICODERM C21 MG/PATC TD (09:54)
[2022-01-22] MEDS ORDERED: NITROSTAT0.4 MG/TAB SL (09:54)
[2022-01-22] MEDS ORDERED: JANUVIA 100MG100 MG PO (09:55)
--- NOTE | 2022-01-22 10:05 | NUR ---
PATIENT ALERT AND ORIENTED, VERBALIZES UNDERSTANDING PROCEDURE. CONSENT SIGNED. FAMILY WILL BE CALLED LATER. PLEASE SEE MERGE FOR SPECIFIC DETAILS REGARDING CASE WELL HEMODYNAMIC MONITOPRING AND MEDICATION ADMINISTRATION.
--- NOTE | 2022-01-22 14:42 | NUR ---
Pt to room 356,report to LARS Irizarry.
--- NOTE | 2022-01-22 19:25 | NUR ---
Patient admitted from express unit post heart cath with interventions. Report recieved from LARS Ko. Admission paperwork completed. Medications, allergies, and pharmacy reviewed. VSS. Patient A&O. Radial band taken off with no issues. Site soft and free from hematoma. Patient denies any pain, discomfort, SOA, or further needs at this time. Call light in reach.
[2022-01-23 01:24] VITALS: BP 126/75; PULSE 80; TEMP 97.9
[2022-01-23 03:20] VITALS: BP 131/63; PULSE 75; TEMP 97.9
[2022-01-23 04:00] VITALS: BP 131/63; PULSE 75; TEMP 97.9
[2022-01-23 06:05] LABS: BASO % 0.3 % (0.0-2.0); EOS # 0.2 K/mm3 (0.0-0.7); EOS % 1.8 % (0.0-4.0); GRAN # 4.9 K/mm3 (1.4-6.5); GRAN % 56.2 % (42.2-75.2); HEMATOCRIT 40.3 % (42.0-52.0); HEMOGLOBIN 13.6 g/dl (13.5-18.0); LYMPH # 2.9 K/mm3 (1.2-3.4); LYMPH % 33.3 % (20.0-51.0); MEAN CELL VOLUME 84 fl (80.0-100.0); MEAN CORPUSCULAR HEMOGLOBIN 28 pg (27-31); MEAN CORPUSCULAR HGB CONC 34 g/dl (33.0-37.0); MEAN PLATELET VOLUME 10.9 fl (7.4-10.4); MONO # 0.7 K/mm3 (0.1-0.6); MONO % 7.7 % (1.7-9.3); PLATELET COUNT 182 K/mm3 (130-400); RED BLOOD COUNT 4.82 M/mm3 (4.20-5.60); REDCELL DISTRIBUTION WIDTH-CV 14.5 % (11.5-14.5)
[2022-01-23 06:20] LABS: CALCIUM 8.8 mg/dL (8.4-10.2); CREATININE, serum 0.99 mg/dL (0.72-1.25)
[2022-01-23 08:46] VITALS: BP 116/64; PULSE 79; TEMP 98.5
--- NOTE | 2022-01-23 09:06 | NUR ---
REPORT GIVEN TO LARS BHAKTA.
[2022-01-23 11:25] VITALS: BP 138/72; PULSE 79; TEMP 97.9
[2022-01-23] MEDS ORDERED: PLAVIX 75MG TAB75 MG PO ×2 (12:41→12:49)
[2022-01-23] MEDS ORDERED: BRILINTA90 MG PO (12:52)
--- NOTE | 2022-01-23 14:12 | NUR ---
THE PATIENT HAS BEEN GIVEN DISCHARGE INSTRUCTIONS AND VERBALIZED UNDERSTANDING. PATIENT IS CURRENTLY WAITING FOR A RIDE. IV REMOVED FROM THE LEFT AC BY STUDENT RN, MELVIN UNDER THIS RN'S SUPERVISION. NO CONCERNS WILL ESCORT THE PATIENT OUT WHEN RIDE ARRIVES.
[2022-01-23 18:17] VITALS: BP 131/79; PULSE 98; TEMP 98.9
== END 2022-01-23 14:15 | disposition home or self-care (01) ==
LOC: COL.CAR 08:04 → MEDICAL 15:06 → COL.CAR 01-23 14:15
PROVIDERS: Internal Medicine Cardiovascular Disease
DX: I25.10 Atherosclerotic heart disease of native coronary artery without angina pectoris (principal); I10 Essential (primary) hypertension; I25.2 Old myocardial infarction; I27.20 Pulmonary hypertension, unspecified; I73.9 Peripheral vascular disease, unspecified; E78.2 Mixed hyperlipidemia; F17.210 Nicotine dependence, cigarettes, uncomplicated; Z79.82 Long term (current) use of aspirin; Z95.5 Presence of coronary angioplasty implant and graft; Z79.01 Long term (current) use of anticoagulants; Z79.899 Other long term (current) drug therapy
CPT/HCPCS: OP; C1725; C1769; C1874; C1887; C9600; J0583; J1644; J1815; J3010

== ENCOUNTER 2024-01-31 06:58 | Observation (INO) | payer MEDICARE, MEDICAID ==
[~2024-01-31] VITALS: Ht 12.7 cm; Wt 87.7 kg
[2024-01-31] VITALS (16 sets, daily range): BP systolic 111–152; BP diastolic 62–88; PULSE 68–89; TEMP 97.7–98.5
[~2024-01-31 06:58] MED LIST changes: +BASAGLAR K100 UNIT/1 SQ; +BETAPACE 80MG80 MG PO; +BRILINTA90 MG PO; +CHANTIX 1MG1 MG PO; +COZAAR 50MG50 MG/TAB PO; +IMDUR 30MG30 MG/TAB PO; +INSULIN R (N100 U/ML SQ; +JARDIANCE25 PO; +TRESIBA100 UNIT/1 SQ
[2024-01-31 07:16] LABS: BASO % 0.3 % (0.0-2.0); EOS # 0.2 K/mm3 (0.0-0.7); GRAN # 5.5 K/mm3 (1.4-6.5); GRAN % 58.6 % (42.2-75.2); HEMOGLOBIN 13.7 g/dl (13.5-18.0); LYMPH # 2.9 K/mm3 (1.2-3.4); LYMPH % 30.6 % (20.0-51.0); MEAN CELL VOLUME 86 fl (80.0-100.0); MEAN CORPUSCULAR HEMOGLOBIN 29 pg (27-31); MEAN CORPUSCULAR HGB CONC 33 g/dl (33.0-37.0); MEAN PLATELET VOLUME 10.5 fl (7.4-10.4); MONO # 0.7 K/mm3 (0.1-0.6); MONO % 7.8 % (1.7-9.3); PLATELET COUNT 216 K/mm3 (130-400); RED BLOOD COUNT 4.76 M/mm3 (4.20-5.60); REDCELL DISTRIBUTION WIDTH-CV 13.6 % (11.5-14.5)
[2024-01-31] MEDS ORDERED: Nitroglycerin 2% Topical Oint 1 GM UD TD ONE (07:30)
[2024-01-31 07:32] LABS: ALBUMIN 3.1 g/dL (3.4-4.8); BILIRUBIN,TOTAL 0.4 mg/dL (0.2-1.2); CALCIUM 9.1 mg/dL (8.4-10.2); CREATININE, serum 1.45 mg/dL (0.72-1.25); POTASSIUM 4.3 mEq/L (3.5-4.5)
[2024-01-31 07:38] LABS: TROPONIN-I 0.079 ng/mL (0.00-0.033)
[2024-01-31] MEDS ORDERED: *Potassium Replacement Protocol MC SCH (09:30)
[2024-01-31] MEDS ORDERED: AMOXICILLIN 8751 TAB PO (10:29)
[2024-01-31] MEDS ORDERED: 1/2 NS 1,000 ML IV SCH ×2 (11:00→13:45)
--- NOTE | 2024-01-31 12:07 | NUR ---
SEE MERGE FOR PROCEDURE DOCUMENTATION
[2024-01-31] MEDS ORDERED: Ticagrelor 90 MG TAB PO SCH ×2 (12:53→21:00)
[2024-01-31] MEDS ORDERED: Bivalirudin 250 MG in NS 50 ML IV SCH (13:01)
[2024-01-31] MEDS ORDERED: Heparin 1,000 UNITS/ML 10 ML Multi-Dose VIAL IV SCH (13:02)
[2024-01-31] MEDS ORDERED: Heparin 1,000 UNITS/ML 10 ML Multi-Dose VIAL IA SCH (13:03)
[2024-01-31] MEDS ORDERED: Nitroglycerin 100 MCG/ML (Cath Lab) 10 ML VIAL IA SCH (13:04)
[2024-01-31] MEDS ORDERED: Iohexol 350 - 100 ML VIAL INCOR ONE (13:07)
[2024-01-31] MEDS ORDERED: Midazolam 2 MG/2 ML VIAL IV SCH (13:09)
[2024-01-31] MEDS ORDERED: Verapamil 2.5 MG/ML 2 ML VIAL IA SCH (13:09)
[2024-01-31] MEDS ORDERED: fentaNYL 50 MCG/ML 2 ML VIAL IV SCH (13:10)
--- NOTE | 2024-01-31 13:20 | NUR ---
PT BACK FROM WHEEL AND PINION INSPECTOR. PT IS AXOX3. PT IS ON RA. PT'S VSS. WATER GIVEN. MENU AND PHONE GIVEN TO PT CAN ORDER LUNCH. PT HAS CALL LIGHT AND INSTRUCTD TO CALL WITH ALL NEEDS.
--- NOTE | 2024-01-31 13:25 | NUR ---
PATIENT TOLERATED PROCEDURE WELL. PATIENT ALERT AND ORIENTED, TRANSFERRED VIA SLIDEBOARD TO BED AND POSITIONED FOR COMFORT. UPDATE PROVIDED VIA PHONE TO PATIENT'S DAUGHTER, PLAN OF CARE REVIEWED. PT TRANSPORTED VIA BED TO [facility]. VITAL SIGNS TAKEN ON ARRIVAL. ANGIOMAX DRIP COMPLETED. VSS. PATIENT PROVIDED CALL LIGHT AND PHONE, BED IN LOWEST POSITION, X3 BEDRAILS IN PLACE. RADIAL ACCESS SITE CDI, DENIES PAIN OR NAUSEA. TRANFER OF CARE TO LARS ATKINS.
--- NOTE | 2024-01-31 15:35 | NUR ---
ATTEMPTED TO REMOVE 2MLS OF AIR FROM TR BAND, BLEEDING NOTED. AIR RE-INSTILLED, SITE CLEANED.
--- NOTE | 2024-01-31 18:53 | NUR ---
1830-TR BAND REMOVED. SITE C/D/I, BANDAID APPLIED.
--- NOTE | 2024-01-31 19:00 | NUR ---
PATIENT RESTING IN BED LYING ON LEFT SIDE WITH EYES CLOSED WITH TV ON WITH NO FAMILY PRESENT WITH NO ACUTE DISTRESS NOTED. PATIENT ON ROOM AIR. 1/2 NS INFUSING INTO LEFT AC VIA DIAL A FLOW WITH NO COMPLICATIONS NOTED. TELEMETRY INTACT. PATIENT DENIES ANY NEEDS AT THIS TIME. PATIENT CARE ASSUMED FROM CARLO. BED IN LOW POSITION WITH WHEELS LOCKED WITH RAILS UP X3 AND CALL LIGHT WITHIN REACH.
--- NOTE | 2024-01-31 19:18 | NUR ---
1010-PT ADMITTED FROM ED WITH CP. PT AMBULATED TO BED. PT IS AXXO3. VSS. PT IS ON RA. PT ORIENTED TO ROOM AND FLOOR. PT INSTRUCTED ON NPO UNTIL SEEN BY CARDIOLOGY. PT GIVEN CALL LIGHT AND ISNTRUCTED TO CALL WITH ALL NEEDS. CARDIOLOGY AWARE OF CONSULT AND ROOM NUMBER.
--- NOTE | 2024-01-31 20:45 | NUR ---
PATIENT RESTING WITH EYES CLOSED LAYING ON LEFT SIDE WITH TV ON WITH NO FAMILY PRESENT WITH NO ACUTE DISTRESS NOTED. PATIENT ON ROOM AIR. 1/2 NS INFUSING VIA DIAL-A-SHAKIRA WITH NO COMPLICATIONS NOTED. ASSESSMENT AND MEDICATION ADMINISTRATION COMPLETED AT THIS TIME. PATIENT TOLERATED WELL. PATIENT C/O CHRONIC CONSTIPATION. PATIENT REQUESTED SOMETHING FOR HIS CONSTIPATION. PATIENT VERBALIZED UNDERSTANDING THAT HOSPITALIST WOULD BE CALLED. PATIENT DENIES ANY OTHER NEEDS AT THIS TIME. BED IN LOW POSITION WITH WHEELS LOCKED WITH RAILS UP X3 AND CALL LIGHT WITHIN REACH.
[2024-01-31] MEDS ORDERED: Atorvastatin 40 MG TAB PO SCH (21:00)
--- NOTE | 2024-01-31 21:21 | NUR ---
HOSPITALIST PETRA FAITH CALLED FOR PATIENT REQUESTED FOR SUPPOSITORY FOR HIS CHRONIC CONSTIPATION. ORDER RECIEVED FOR A SUPPOSITORY.
--- NOTE | 2024-01-31 22:44 | NUR ---
SUPPOSITORY GIVEN PER MD ORDER AT THIS TIME. PATIENT TOLERATED WELL.
[2024-02-01] VITALS (7 sets, daily range): BP systolic 125–132; BP diastolic 77–80; PULSE 76–82; TEMP 97.8–98.2
--- NOTE | 2024-02-01 06:45 | NUR ---
awake and up and about in room, bedside shift report received from LARS Torres
[2024-02-01 06:51] LABS: BASO % 0.4 % (0.0-2.0); EOS # 0.2 K/mm3 (0.0-0.7); EOS % 2.1 % (0.0-4.0); GRAN # 5.3 K/mm3 (1.4-6.5); GRAN % 59.4 % (42.2-75.2); HEMATOCRIT 39.3 % (42.0-52.0); HEMOGLOBIN 13.4 g/dl (13.5-18.0); LYMPH # 2.7 K/mm3 (1.2-3.4); LYMPH % 30.4 % (20.0-51.0); MEAN CELL VOLUME 83 fl (80.0-100.0); MEAN CORPUSCULAR HEMOGLOBIN 28 pg (27-31); MEAN CORPUSCULAR HGB CONC 34 g/dl (33.0-37.0); MEAN PLATELET VOLUME 10.8 fl (7.4-10.4); MONO # 0.7 K/mm3 (0.1-0.6); MONO % 7.3 % (1.7-9.3); PLATELET COUNT 216 K/mm3 (130-400); RED BLOOD COUNT 4.72 M/mm3 (4.20-5.60); REDCELL DISTRIBUTION WIDTH-CV 13.2 % (11.5-14.5)
[2024-02-01 07:01] LABS: ALBUMIN 2.9 g/dL (3.4-4.8); CREATININE, serum 1.2 mg/dL (0.72-1.25); MAGNESIUM 1.9 mg/dL (1.6-2.6); POTASSIUM 4.6 mEq/L (3.5-4.5)
[2024-02-01] MEDS ORDERED: Isosorbide Mononitrate CR (24-HR) 30 MG TAB PO SCH (07:30)
--- NOTE | 2024-02-01 08:15 | NUR ---
resting in bed, full assessment completed, see interventions for further info
[2024-02-01] MEDS ORDERED: Losartan 50 MG TAB PO SCH (09:00)
[2024-02-01] MEDS ORDERED: SITagliptin 100 MG TAB PO SCH (09:00)
--- NOTE | 2024-02-01 09:10 | NUR ---
ambulating in [place] independently, denies needs
--- NOTE | 2024-02-01 10:42 | NUR ---
remains up and about and independent in room and [place]
--- NOTE | 2024-02-01 11:03 | NUR ---
Reviewed risk factors for heart disease. Covered applicable modifiable risk factors including the following: tobacco cessation, HTN, hyperlipidemia, diabetes, overweight/obesity, sedentary lifestyle, and stress/depression. Patient verbalized understanding. Referral sent to [facility] with patient's permission. Staff will follow up on Tuesday.
[2024-02-01] MEDS ORDERED: LIPITOR 80MG80 MG PO (12:23)
--- NOTE | 2024-02-01 13:02 | NUR ---
anxious to go home, informed him we were working on the paper work
--- NOTE | 2024-02-01 13:30 | NUR ---
discharge instructions given to patient, verbalizes understanding
--- NOTE | 2024-02-01 14:05 | NUR ---
discharged ambulatory
== END 2024-02-01 14:05 | disposition home or self-care (01) ==
LOC: COL.ER 06:58 → MEDICAL 08:32
PROVIDERS: Emergency Medicine; ADMIT Internal Medicine
DX: R07.9 Chest pain, unspecified (principal); I25.10 Atherosclerotic heart disease of native coronary artery without angina pectoris; I25.2 Old myocardial infarction; I10 Essential (primary) hypertension; F17.210 Nicotine dependence, cigarettes, uncomplicated; Z79.02 Long term (current) use of antithrombotics/antiplatelets; Z79.899 Other long term (current) drug therapy; Z95.5 Presence of coronary angioplasty implant and graft; Z86.73 Personal history of transient ischemic attack (TIA), and cerebral infarction without residual deficits; Z95.820 Peripheral vascular angioplasty status with implants and grafts
CPT/HCPCS: C1725; C1769; C1874; C1887; C9600; G0378; J0583; J1644; J2250; J3010; Q9967